=== PATIENT | male | born 1965 | race Two or more races ===

== ENCOUNTER 2018-03-21 04:49 | Emergency (ER) | payer MEDICAID ==
[~2018-03-21] VITALS: Ht 177.8 cm; Wt 79.5 kg
[2018-03-21] MEDS ORDERED: SODIUM CHLORIDE 0.9% 1,000 ML IV ONE (05:06)
[2018-03-21 05:48] LABS: BASOPHILS % 0.6 % (0.0-2.0); EOSINOPHILS % 2.1 % (0.0-5.0); HEMOGLOBIN. 12.5 g/dL (14.0-18.0); LYMPHOCYTES % 18.7 % (20.0-50.0); MEAN CORPUSCULAR HEMOGLOBIN 28.9 pg (28.0-32.0); MEAN CORPUSCULAR VOLUME 83.3 fL (80.0-94.0); MEAN PLATELET VOLUME 9.2 fl (7.4-10.4); MONOCYTES % 5.5 % (2.0-8.0); NEUTROPHILS % 73.1 % (40.0-76.0); PLATELET 247 x1000/uL (130-400); RED BLOOD CELL COUNT 4.32 mill/uL (4.7-6.1); RED CELL DISTRIBUTION WIDTH 13.8 % (11.6-14.6)
[2018-03-21 05:56] LABS: CHLORIDE 104 mEq/L (98-107)
[2018-03-21 05:58] LABS: PROTHROMBIN TIME 10.7 sec (9.4-11.6)
[2018-03-21 06:00] LABS: ETHANOL BLOOD < 10 mg/dL
[2018-03-21 06:03] LABS: AMMONIA 33 uMol/L (<32)
[2018-03-21 06:43] LABS: CLARITY URINE CLEAR (CLEAR); COLOR URINE YELLOW (YELLOW); KETONES URINE NEGATIVE (NEGATIVE); LEUKOCYTE ESTERASE URINE NEGATIVE (NEGATIVE); NITRITE URINE NEGATIVE (NEGATIVE); OCCULT BLOOD URINE NEGATIVE (NEGATIVE); PH URINE 5.5 (4.5-8.0); PROTEIN URINE NEGATIVE (NEGATIVE); SPECIFIC GRAVITY URINE 1.026 (1.005-1.030); UROBILINOGEN URINE 0.2 E.U./dL (0.2-1.0)
[2018-03-21] MEDS ORDERED: ACETAMINOPHEN 325MG TABLET PO ONE (07:45)
[2018-03-21 07:51] LABS: *AMPHETAMINES SCREEN URINE NEGATIVE (NEGATIVE)
[2018-03-21 07:53] LABS: *BARBITURATES SCREEN URINE NEGATIVE (NEGATIVE)
[2018-03-21 07:54] LABS: *BENZODIAZEPINES SCREEN URINE NEGATIVE (NEGATIVE)
[2018-03-21 07:55] LABS: *COCAINE SCREEN URINE NEGATIVE (NEGATIVE)
[2018-03-21 07:59] LABS: METHADONE URINE SCREEN NEGATIVE (NEGATIVE)
[2018-03-21 08:08] VITALS: BP 167/81
[2018-03-21 08:09] LABS: CANNABINOID URINE SCREEN NEGATIVE (NEGATIVE)
[2018-03-21 08:26] LABS: PHENCYCLIDINE URINE SCREEN NEGATIVE (NEGATIVE)
[2018-03-21 08:28] LABS: OPIATES URINE SCREEN PRESUMTIVE POSITIVE (NEGATIVE)
== END 2018-03-21 08:10 | disposition home or self-care (01) ==
LOC: ER 04:49
DX: E86.0 Dehydration (principal); R79.1 Abnormal coagulation profile
CPT/HCPCS: 36415; 70450; 80053; 80305; 80307; 80329; 81003; 82140; 84484; 85025; 85610; 93005; 96360; 96361; 99285; G0482; J7030; Z7610